=== PATIENT | female | born 2000 | race African-American/Black ===

== ENCOUNTER 2023-10-11 15:08 | Emergency (ER) | payer SELFPAY ==
[~2023-10-11] VITALS: Ht 180.3 cm; Wt 99.0 kg
[2023-10-11 15:20] VITALS: O2SAT 99
[2023-10-11] MEDS ORDERED: LIDO700A15 TP (17:06)
[2023-10-11 18:03] VITALS: BP 134/90; PULSE 89; RESP 16; TEMP 98.9
== END 2023-10-11 21:41 | disposition home or self-care (01) ==
LOC: ER 15:08
DX: S13.4XXA Sprain of ligaments of cervical spine, initial encounter (principal); G89.11 Acute pain due to trauma; F41.9 Anxiety disorder, unspecified; J45.909 Unspecified asthma, uncomplicated; F32.9 Major depressive disorder, single episode, unspecified; V49.49XA Driver injured in collision with other motor vehicles in traffic accident, initial encounter; Y93.89 Activity, other specified; Y92.89 Other specified places as the place of occurrence of the external cause; Y99.8 Other external cause status
CPT/HCPCS: 99281

== ENCOUNTER 2025-07-10 19:49 | Emergency (ER) | payer OTHER ==
[~2025-07-10] VITALS: Ht 180.3 cm; Wt 123.9 kg
[~2025-07-10 19:49] MED LIST: LIDO-53 TP
[2025-07-10 20:20] VITALS: O2SAT 99
[2025-07-10 20:28] VITALS: BP 138/75; PULSE 100; TEMP 37; O2SAT 99
[2025-07-10 23:17] VITALS: TEMP 98.6
[2025-07-10] MEDS: ACETAMINOPHEN 500MG TABLET PO ONE (23:17)
[2025-07-10 23:18] VITALS: RESP 20
[2025-07-10] MEDS: LIDOCAINE 5% PATCH TOP SCH (23:18)
[2025-07-10] MEDS: IBUPROFEN 400MG TABLET PO ONE (23:18)
[2025-07-10] MEDS ORDERED: LIDO700A30 TP (23:35)
[2025-07-10] MEDS ORDERED: IBUP-2028 MT (23:35)
== END 2025-07-10 23:58 | disposition home or self-care (01) ==
LOC: ER 19:49
DX: S16.1XXA Strain of muscle, fascia and tendon at neck level, initial encounter (principal); J45.909 Unspecified asthma, uncomplicated; F32.A Depression, unspecified; V89.2XXA Person injured in unspecified motor-vehicle accident, traffic, initial encounter; Y93.89 Activity, other specified; Y92.89 Other specified places as the place of occurrence of the external cause; Y99.8 Other external cause status
CPT/HCPCS: 81025; 99284